=== PATIENT | female | born 1970 | race Caucasian/White ===

== ENCOUNTER 2018-08-24 09:28 | Day surgery (SDC) ==
[2015-07-18 11:07] VITALS: BMI 32.5
[2018-08-24 09:52] VITALS: TEMP 97.4
[2018-08-24] MEDS ORDERED: LIDOCAINE 1% 20 ML MDV ID STA (09:55)
[2018-08-24] MEDS ORDERED: VERSED ONE (10:25)
[2018-08-24] MEDS ORDERED: DIPRIVAN 20 ML VIAL IVP ONE (10:25)
[2018-08-24 14:45] VITALS: BP 112/67
--- NOTE | 2018-08-25 11:48 | OP ---
PROCEDURE: COLONOSCOPY TO THE CECUM. ENDOSCOPIST: Ariel ELLIS M.D. INDICATION: RECTAL BLEEDING. INSTRUMENT: PC-190. MEDICATION: PER ANESTHESIA. PROCEDURE: The patient was positioned for colonoscopy. The digital rectal exam was negative. The colonoscope was inserted through the anus and advanced to the cecum. The cecum was identified using the ileocecal valve and the appendiceal orifice as landmarks. The scope was slowly withdrawn through an adequately prepped colon. A very tortuous exam. Hemorrhoids are seen in the anal canal. No other abnormalities are noted. She tolerated the procedure without immediate complication. Withdrawal time 9 minutes and 11 seconds. [place] Bowel Prep Score = 10. PLAN: 1. Repeat colonoscopy in 10 years. 2. She should begin the Miralax for management of her constipation. cc: Dr. Niyah BAR
== END 2018-08-24 11:50 | disposition home or self-care (01) ==
LOC: SURG 09:28
PROVIDERS: ATTEND Internal Medicine Gastroenterology
DX: K62.5 Hemorrhage of anus and rectum (principal); K92.2 Gastrointestinal hemorrhage, unspecified; K64.9 Unspecified hemorrhoids